=== PATIENT | male | born 1970 | race African-American/Black ===

== ENCOUNTER 2017-06-10 10:37 | Emergency (ER) | payer SELFPAY ==
[~2017-06-10] VITALS: Ht 185.4 cm; Wt 145.8 kg
[~2017-06-10 10:37] MED LIST: FLEXERIL10 MG PO; PERCOCET 5/31 TABLET PO
[2017-06-10 10:42] VITALS: BP 150/87
== END 2017-06-10 12:43 | disposition left against medical advice (07) ==
LOC: EME 10:37
DX: R60.9 Edema, unspecified (principal); Z53.21 Procedure and treatment not carried out due to patient leaving prior to being seen by health care provider
CPT/HCPCS: 99281

== ENCOUNTER 2017-06-25 22:09 | Emergency (ER) | payer SELFPAY ==
[~2017-06-25] VITALS: Ht 185.4 cm; Wt 142.7 kg
[2017-06-26 00:55] VITALS: BP 125/85
== END 2017-06-26 02:36 | disposition home or self-care (01) ==
LOC: EME 22:09
DX: M79.662 Pain in left lower leg (principal); Z86.718 Personal history of other venous thrombosis and embolism; F17.200 Nicotine dependence, unspecified, uncomplicated; I11.0 Hypertensive heart disease with heart failure; I50.9 Heart failure, unspecified; E78.5 Hyperlipidemia, unspecified; Z83.3 Family history of diabetes mellitus; Z88.6 Allergy status to analgesic agent
CPT/HCPCS: 73590; 93971

== ENCOUNTER 2017-09-19 09:55 | Emergency (ER) | payer SELFPAY ==
[~2017-09-19] VITALS: Ht 185.4 cm; Wt 138.5 kg
[2017-09-19 10:50] LABS: BASOPHIL (%) 0.3 % (0-1); EOSINOPHIL (%) 2.7 % (0-5); EOSINOPHIL COUNT 0.2 K/uL (0-0.3); HEMATOCRIT 37.1 % (38.0-50.0); HEMOGLOBIN 12.6 G/DL (12.5-16.6); IMMATURE GRANULOCYTE (%) 0.2 % (0.0-0.7); LYMPHOCYTE (%) 28.3 % (15-42); LYMPHOCYTE COUNT 2.6 K/uL (1.0-2.8); MCH 27.3 PG (29.0-34.0); MCV 80.3 FL (86-99); MONOCYTE (%) 9.4 % (3-12); MONOCYTE COUNT 0.9 K/uL (0-0.8); NEUTROPHIL (%) 59.1 % (45-76); NEUTROPHIL COUNT 5.3 K/uL (1.8-6.4); PLATELET COUNT 216 K/uL (156-360); RBC DIS.WIDTH-CV 14.1 % (11.8-14.6); RBC DIS.WIDTH-SD 40.9 % (39-53); RED BLOOD COUNT 4.62 M/uL (4.00-5.50)
[2017-09-19 11:00] LABS: CHLORIDE 106 mEq/L (99-109); POTASSIUM 3.7 mEq/L (3.7-5.4); SODIUM 141 mEq/L (136-147)
[2017-09-19 11:01] LABS: GLUCOSE 106 mg/dL (70-99)
[2017-09-19 11:05] LABS: CREATININE 0.9 mg/dL (0.6-1.3); GFR ESTIMATE (CALCULATED) > 59 mL/min/ (58.99-99999)
[2017-09-19 11:06] LABS: UREA NITROGEN (BUN) 8 mg/dL (9-23)
[2017-09-19] MEDS ORDERED: PERCOCET 5/31 TABLET PO (13:18)
[2017-09-19] MEDS ORDERED: KEFLEX500 MG PO (13:18)
[2017-09-19 14:00] VITALS: BP 152/85
== END 2017-09-19 14:38 | disposition home or self-care (01) ==
LOC: EME 09:55
PROVIDERS: Emergency Medicine
DX: L03.114 Cellulitis of left upper limb (principal); G47.33 Obstructive sleep apnea (adult) (pediatric); Z86.718 Personal history of other venous thrombosis and embolism; Z87.39 Personal history of other diseases of the musculoskeletal system and connective tissue; Z88.6 Allergy status to analgesic agent
CPT/HCPCS: 71045; 73080; 80048; 81003; 85025; 93971; 99281; 99285

== ENCOUNTER 2017-09-20 02:11 | Emergency (ER) | payer SELFPAY ==
[~2017-09-20] VITALS: Ht 180.3 cm; Wt 95.5 kg
[~2017-09-20 02:11] MED LIST changes: +KEFLEX500 MG PO
[2017-09-20 02:45] LABS: HEMATOCRIT 36.6 % (38.0-50.0); HEMOGLOBIN 12.6 G/DL (12.5-16.6); MCH 27.5 PG (29.0-34.0); MCHC 34.4 G/DL (30.0-36.0); MCV 79.7 FL (86-99); RBC DIS.WIDTH-CV 14.2 % (11.8-14.6); RBC DIS.WIDTH-SD 41.1 % (39-53); RED BLOOD COUNT 4.59 M/uL (4.00-5.50); WHITE BLOOD COUNT 13.4 K/uL (4.1-10.2)
[2017-09-20 02:54] LABS: CHLORIDE 105 mEq/L (99-109); POTASSIUM 3.8 mEq/L (3.7-5.4); SODIUM 142 mEq/L (136-147)
[2017-09-20 02:56] LABS: GLUCOSE 123 mg/dL (70-99)
[2017-09-20 03:00] LABS: GFR ESTIMATE (CALCULATED) > 59 mL/min/ (58.99-99999)
[2017-09-20 03:01] LABS: UREA NITROGEN (BUN) 11 mg/dL (9-23)
[2017-09-20 03:06] LABS: TROP-I INTERPRETATION NEGATIVE; TROPONIN-I < 0.01 ng/mL (0.0-0.30)
[2017-09-20 05:11] LABS: PLAT.SUFFICIENCY ADEQUATE; PLATELET COUNT 210 K/uL (156-360)
[2017-09-20 06:22] LABS: TROP-I INTERPRETATION NEGATIVE; TROPONIN-I < 0.01 ng/mL (0.0-0.30)
[2017-09-20 10:45] VITALS: BP 115/62
== END 2017-09-20 10:49 | disposition home or self-care (01) ==
LOC: EME 02:11
PROVIDERS: Emergency Medicine
DX: R07.9 Chest pain, unspecified (principal); R51 Headache; S40.862A Insect bite (nonvenomous) of left upper arm, initial encounter; W57.XXXA Bitten or stung by nonvenomous insect and other nonvenomous arthropods, initial encounter
CPT/HCPCS: 71046; 80048; 84484; 85027; 93005; 99281; 99284; J1200; J1885

== ENCOUNTER 2017-11-06 11:05 | Emergency (ER) | payer OTHER ==
[~2017-11-06] VITALS: Ht 185.4 cm; Wt 138.0 kg
[2017-11-06] MEDS ORDERED: MOTRIN800 MG PO (12:15)
[2017-11-06 12:50] VITALS: BP 156/86
== END 2017-11-06 12:50 | disposition home or self-care (01) ==
LOC: EME 11:05
DX: M25.572 Pain in left ankle and joints of left foot (principal); M25.472 Effusion, left ankle; Z88.6 Allergy status to analgesic agent
CPT/HCPCS: 73610; 99281; 99283

== ENCOUNTER 2017-11-14 12:04 | Emergency (ER) | payer SELFPAY ==
[~2017-11-14] VITALS: Ht 193 cm; Wt 138.6 kg
[~2017-11-14 12:04] MED LIST changes: +MOTRIN800 MG PO
[2017-11-14 14:45] VITALS: BP 138/100
== END 2017-11-14 14:30 | disposition home or self-care (01) ==
LOC: EME 12:04
DX: T40.2X1A Poisoning by other opioids, accidental (unintentional), initial encounter (principal); R40.0 Somnolence; G89.29 Other chronic pain; M25.559 Pain in unspecified hip; F17.200 Nicotine dependence, unspecified, uncomplicated
CPT/HCPCS: 82948; 93005; J2310

== ENCOUNTER 2017-11-26 04:38 | Emergency (ER) | payer SELFPAY ==
[~2017-11-26] VITALS: Ht 185.4 cm; Wt 136.8 kg
[2017-11-26 05:51] LABS: HEMATOCRIT 36.4 % (38.0-50.0); HEMOGLOBIN 12.5 G/DL (12.5-16.6); MCH 27.5 PG (29.0-34.0); MCHC 34.3 G/DL (30.0-36.0); MCV 80.2 FL (86-99); PLATELET COUNT 238 K/uL (156-360); RBC DIS.WIDTH-CV 14.7 % (11.8-14.6); RED BLOOD COUNT 4.54 M/uL (4.00-5.50); WHITE BLOOD COUNT 8.8 K/uL (4.1-10.2)
[2017-11-26 06:01] LABS: CHLORIDE 104 mEq/L (99-109); POTASSIUM 3.5 mEq/L (3.7-5.4); SODIUM 140 mEq/L (136-147)
[2017-11-26 06:02] LABS: GLUCOSE 119 mg/dL (70-99)
[2017-11-26 06:06] LABS: CREATININE 1.1 mg/dL (0.6-1.3); GFR ESTIMATE (CALCULATED) > 59 mL/min/ (58.99-99999)
[2017-11-26 06:07] LABS: UREA NITROGEN (BUN) 10 mg/dL (9-23)
[2017-11-26] MEDS ORDERED: NAPROSYN500 MG PO (06:08)
[2017-11-26 06:09] LABS: URIC ACID 7.7 mg/dL (3.1-9.2)
[2017-11-26 06:38] VITALS: BP 160/94
== END 2017-11-26 06:41 | disposition home or self-care (01) ==
LOC: EME 04:38
PROVIDERS: Emergency Medicine
DX: S93.402A Sprain of unspecified ligament of left ankle, initial encounter (principal); X58.XXXA Exposure to other specified factors, initial encounter; G89.29 Other chronic pain; I50.9 Heart failure, unspecified; I10 Essential (primary) hypertension; E78.5 Hyperlipidemia, unspecified; G47.30 Sleep apnea, unspecified; F17.200 Nicotine dependence, unspecified, uncomplicated; Z88.6 Allergy status to analgesic agent
CPT/HCPCS: 73610; 80048; 84550; 85027; 99281; 99284

== ENCOUNTER 2017-11-29 16:30 | Emergency (ER) | payer SELFPAY ==
[~2017-11-29] VITALS: Ht 185.4 cm; Wt 134.5 kg
[~2017-11-29 16:30] MED LIST changes: +NAPROSYN500 MG PO
[2017-11-29] MEDS ORDERED: NEURONTIN600 MG PO (17:55)
[2017-11-29] MEDS ORDERED: ULTRAM50 MG PO (18:07)
[2017-11-29 18:20] VITALS: BP 138/91
== END 2017-11-29 18:34 | disposition home or self-care (01) ==
LOC: EME 16:30
DX: G62.9 Polyneuropathy, unspecified (principal); M79.671 Pain in right foot; Z83.3 Family history of diabetes mellitus; I50.9 Heart failure, unspecified; G47.30 Sleep apnea, unspecified; Z88.6 Allergy status to analgesic agent; F17.200 Nicotine dependence, unspecified, uncomplicated
CPT/HCPCS: 73630; 99281; 99283